=== PATIENT | female | born 1970 | race Caucasian/White ===

== ENCOUNTER → 2016-10-19 | Outpatient (CLI) | payer BC ==
[~2016-10-19] MED LIST: ADVIL200 MG PO; ASPIRIN 81M81 MG/TA2 PO; LEVAQUIN 5500 MG/TA1 PO; METOPROLOL PO; NO HOME MEDICATIONS; NORCO 325 MG-51 TAB PO; PERCOCET 325 MG1 TA2 PO; SILVADENE CREAM1 TU TP; TOPROL XL100 MG PO; TUMS500 MG PO; ZITHROMAX 250M250 MG PO
== END ==
LOC: MC.RAD 10-12 14:40
DX: Z12.31 Encounter for screening mammogram for malignant neoplasm of breast (principal)

== ENCOUNTER → 2017-11-21 | Outpatient (CLI) | payer BC | LOC: MC.RAD 15:16 | DX: Z12.31 Encounter for screening mammogram for malignant neoplasm of breast (principal) ==

== ENCOUNTER → 2018-12-25 | Outpatient (CLI) | payer BC | LOC: MC.RAD 14:56 | DX: Z12.31 Encounter for screening mammogram for malignant neoplasm of breast (principal) ==

== ENCOUNTER → 2019-01-29 | Outpatient (CLI) | payer BC ==
[~2019-01-29] VITALS: Ht 167.6 cm; Wt 114.8 kg
[~2019-01-29] MED LIST changes: +PRILOTC PO; +TOPROL XL 50MG50 MG PO
[2019-01-29 08:31] VITALS: BP 116/70; PULSE 72
== END ==
LOC: LIGHT 08:00
DX: E88.81 Metabolic syndrome and other insulin resistance (principal); I10 Essential (primary) hypertension; E66.01 Morbid (severe) obesity due to excess calories; K21.9 Gastro-esophageal reflux disease without esophagitis; Z68.41 Body mass index [BMI] 40.0-44.9, adult; Z71.3 Dietary counseling and surveillance
CPT/HCPCS: G0463

== ENCOUNTER → 2019-02-10 | Outpatient (CLI) | payer BC ==
[~2019-02-10] VITALS: Ht 167.6 cm; Wt 115.2 kg
== END ==
LOC: LIGHT 08:12
DX: E88.81 Metabolic syndrome and other insulin resistance (principal); I10 Essential (primary) hypertension; K21.9 Gastro-esophageal reflux disease without esophagitis; E66.01 Morbid (severe) obesity due to excess calories; Z68.41 Body mass index [BMI] 40.0-44.9, adult; Z71.3 Dietary counseling and surveillance

== ENCOUNTER → 2019-02-24 | Outpatient (CLI) | payer BC | LOC: LIGHT 15:58 | DX: E88.81 Metabolic syndrome and other insulin resistance (principal); I10 Essential (primary) hypertension; K21.9 Gastro-esophageal reflux disease without esophagitis; E66.01 Morbid (severe) obesity due to excess calories; Z68.41 Body mass index [BMI] 40.0-44.9, adult; Z71.3 Dietary counseling and surveillance ==

== ENCOUNTER → 2019-02-27 | Outpatient (CLI) | payer BC ==
[~2019-02-27] VITALS: Ht 167.6 cm; Wt 114.1 kg
[~2019-02-27] MED LIST changes: +FASTIN30 MG PO
[2019-02-27 16:16] VITALS: BP 126/78; PULSE 56
== END ==
LOC: LIGHT 10:39
DX: E88.81 Metabolic syndrome and other insulin resistance (principal); I10 Essential (primary) hypertension; K21.9 Gastro-esophageal reflux disease without esophagitis; E66.01 Morbid (severe) obesity due to excess calories; Z68.41 Body mass index [BMI] 40.0-44.9, adult; Z71.3 Dietary counseling and surveillance
CPT/HCPCS: G0463

== ENCOUNTER → 2019-04-03 | Outpatient (CLI) | payer BC ==
[~2019-04-03] VITALS: Ht 167.6 cm; Wt 109.5 kg
[2019-04-03 13:07] VITALS: BP 120/88; PULSE 72
== END ==
LOC: LIGHT 13:00
DX: E88.81 Metabolic syndrome and other insulin resistance (principal); I10 Essential (primary) hypertension; K21.9 Gastro-esophageal reflux disease without esophagitis; E66.01 Morbid (severe) obesity due to excess calories; Z68.39 Body mass index [BMI] 39.0-39.9, adult; Z71.3 Dietary counseling and surveillance
CPT/HCPCS: G0463

== ENCOUNTER → 2019-05-01 | Outpatient (CLI) | payer BC ==
[~2019-05-01] VITALS: Ht 167.6 cm; Wt 107.3 kg
[2019-05-01 15:11] VITALS: BP 124/74; PULSE 68
== END ==
LOC: LIGHT 14:58
DX: E88.81 Metabolic syndrome and other insulin resistance (principal); I10 Essential (primary) hypertension; K21.9 Gastro-esophageal reflux disease without esophagitis; E66.01 Morbid (severe) obesity due to excess calories; Z68.38 Body mass index [BMI] 38.0-38.9, adult; Z71.3 Dietary counseling and surveillance
CPT/HCPCS: G0463

== ENCOUNTER → 2019-06-12 | Outpatient (CLI) | payer BC ==
[~2019-06-12] VITALS: Ht 167.6 cm; Wt 103.0 kg
[2019-06-12 16:05] VITALS: BP 124/76; PULSE 72
== END ==
LOC: LIGHT 15:12
DX: E88.81 Metabolic syndrome and other insulin resistance (principal); I10 Essential (primary) hypertension; K21.9 Gastro-esophageal reflux disease without esophagitis; E66.01 Morbid (severe) obesity due to excess calories; Z68.36 Body mass index [BMI] 36.0-36.9, adult; Z71.3 Dietary counseling and surveillance
CPT/HCPCS: G0463

== ENCOUNTER → 2019-12-31 | Outpatient (CLI) | payer BC | LOC: MC.RAD 17:12 | DX: Z12.31 Encounter for screening mammogram for malignant neoplasm of breast (principal) ==

== ENCOUNTER → 2020-02-26 | Outpatient (CLI) | payer BC ==
[~2020-02-26] VITALS: Ht 167.6 cm; Wt 93.2 kg
[~2020-02-26] MED LIST changes: +DESCOVY 200-251 EACH PO
[2020-02-26 16:35] VITALS: BP 126/80; PULSE 68
== END ==
LOC: LIGHT 10:56
DX: E66.8 Other obesity (principal); Z68.33 Body mass index [BMI] 33.0-33.9, adult; E88.81 Metabolic syndrome and other insulin resistance; I10 Essential (primary) hypertension
CPT/HCPCS: G0463

== ENCOUNTER → 2020-04-15 | Outpatient (CLI) | payer BC ==
[~2020-04-15] VITALS: Ht 167.6 cm; Wt 90.0 kg
[2020-04-15 16:43] VITALS: BP 120/86; PULSE 60
== END ==
LOC: LIGHT 15:34
DX: E66.8 Other obesity (principal); Z68.32 Body mass index [BMI] 32.0-32.9, adult; E88.81 Metabolic syndrome and other insulin resistance; I10 Essential (primary) hypertension
CPT/HCPCS: G0463

== ENCOUNTER → 2020-06-03 | Outpatient (CLI) | payer BC ==
[~2020-06-03] VITALS: Ht 167.6 cm; Wt 93.7 kg
[~2020-06-03] MED LIST changes: +ADIPEX-P37.5 MG PO; -FASTIN30 MG PO
[2020-06-03 16:08] VITALS: BP 130/84; PULSE 84
== END ==
LOC: LIGHT 16:02
DX: E66.8 Other obesity (principal); Z68.33 Body mass index [BMI] 33.0-33.9, adult; E88.81 Metabolic syndrome and other insulin resistance; I10 Essential (primary) hypertension
CPT/HCPCS: G0463

== ENCOUNTER → 2021-01-03 | Outpatient (CLI) | payer BC | LOC: MC.RAD 14:08 | DX: Z12.31 Encounter for screening mammogram for malignant neoplasm of breast (principal) ==

== ENCOUNTER → 2022-01-10 | Outpatient (CLI) | payer BC | LOC: MC.RAD 16:56 | DX: Z12.31 Encounter for screening mammogram for malignant neoplasm of breast (principal) ==

== ENCOUNTER → 2024-02-12 | Outpatient (CLI) | payer BC | LOC: MC.RAD 14:06 | DX: Z12.31 Encounter for screening mammogram for malignant neoplasm of breast (principal) ==